=== PATIENT | female | born 1975 | race Caucasian/White ===

== ENCOUNTER 2020-09-13 10:31 | Inpatient (IN) | payer MEDICAID, OTHER ==
--- NOTE | 2020-09-13 11:19 | ED ---
Psych HPI - General Chief Complaint: Psychiatric Symptoms Stated Complaint: Mental health Time Seen by Provider: 09/13/20 10:45 Source: patient, family, RN notes reviewed Mode of arrival: ambulatory - History of Present Illness Initial Comments: This is a 45-year-old female with a history depression and anxiety disorder who states she's been feeling suicidal but she has no specific plan she has thought of driving into a tree with her automobile. Denies any alcohol or street drugs. He does state that she has been on Klonopin in the past for about 2 years 0.5 mg 3 times a day she was trying to get off of that she was on Cymbalta for about 2 and half weeks she does relate that she's had decreased oral intake now shakes more anxiety. She is here for evaluation. She is afraid she may hurt herself. She is tearful during the exam MD Complaint: suicidal ideation, feels depressed - Related Data Home Medications Medication Instructions Recorded Confirmed DULoxetine HCL [Cymbalta] 30 mg PO HS 09/13/20 09/13/20 Ibuprofen [Motrin Ib] 600 mg PO Q8H PRN 09/13/20 09/13/20 Magnesium 400 mg PO DAILY 09/13/20 09/13/20 Melatonin 15 mg PO HS 09/13/20 09/13/20 Omeprazole 20 mg PO DAILY PRN 09/13/20 09/13/20 Valerian Root 100 mg PO TID PRN 09/13/20 09/13/20 clonazePAM [KlonoPIN] 0.5 mg PO DAILY PRN 09/13/20 09/13/20 Allergies Allergy/AdvReac Type Severity Reaction Status Date / Time codeine Allergy Rapid Verified 09/13/20 11:33 Heart Rate Review of Systems ROS Statement: Those systems with pertinent positive or pertinent negative responses have been documented in the HPI. ROS Other: All systems not noted in ROS Statement are negative. Past Medical History Past Medical History: Asthma, Fibromyalgia History of Any Multi-Drug Resistant Organisms: None Reported Past Surgical History: Cholecystectomy, Hysterectomy, Tubal Ligation Past Psychological History: Anxiety, Bipolar, Depression Smoking Status: Never smoker Past Alcohol Use History: None Reported Past Drug Use History: None Reported General Exam - General Exam Comments Initial Comments: this is a well-developed well-nourished awake alert oriented 3 female Limitations: no limitations General appearance: alert, anxious Head exam: Present: atraumatic, normocephalic, normal inspection Eye exam: Present: normal appearance, PERRL, EOMI. Absent: scleral icterus, conjunctival injection, periorbital swelling ENT exam: Present: normal exam, mucous membranes moist Neck exam: Present: normal inspection. Absent: tenderness, meningismus, lymphadenopathy Respiratory exam: Present: normal lung sounds bilaterally. Absent: respiratory distress, wheezes, rales, rhonchi, stridor Cardiovascular Exam: Present: normal rhythm, tachycardia, normal heart sounds. Absent: systolic murmur, diastolic murmur, rubs, gallop, clicks GI/Abdominal exam: Present: soft, normal bowel sounds. Absent: distended, tenderness, guarding, rebound, rigid Extremities exam: Present: normal inspection, full ROM, normal capillary refill. Absent: tenderness, pedal edema, joint swelling, calf tenderness Back exam: Present: normal inspection Neurological exam: Present: alert, oriented X3, CN II-XII intact Psychiatric exam: Present: depressed, anxious, suicidal ideation Skin exam: Present: warm, dry, intact, normal color. Absent: rash Course Vital Signs 09/13/20 10:50 Temperature 97.9 F Pulse Rate 118 H Respiratory 18 Rate Blood Pressure 154/83 O2 Sat by Pulse 97 Oximetry Medical Decision Making - Medical Decision Making the patient was evaluated by the EPS service and will be admitted for inpatient treatment of depression and suicidal ideation - Lab Data Lab Results 09/13/20 09/13/20 Range/Units 12:04 12:57 Urine Opiates Screen Not Detected (NotDetected) Ur Oxycodone Screen Not Detected (NotDetected) Urine Methadone Screen Not Detected (NotDetected) Ur Propoxyphene Screen Not Detected (NotDetected) Ur Barbiturates Screen Not Detected (NotDetected) U Tricyclic Antidepress Not Detected (NotDetected) Ur Phencyclidine Scrn Not Detected (NotDetected) Ur Amphetamines Screen Not Detected (NotDetected) U Methamphetamines Scrn Not Detected (NotDetected) U Benzodiazepines Scrn Detected H (NotDetected) Urine Cocaine Screen Not Detected (NotDetected) U Marijuana (THC) Screen Not Detected (NotDetected) Coronavirus (PCR) Not Detected (Not Detectd) Disposition Clinical Impression: Depression, Suicidal ideation Disposition: TRANSFER TO PSYCH HOSP/UNIT Condition: Fair Referrals: Fadi Gomes DO [Primary Care Provider] - 1-2 days
[2020-09-13 12:39] LABS: Amphetamine Screen,Urine Not Detected (NotDetected); Barbiturate Screen,Urine Not Detected (NotDetected); Benzodiazepines Screen,Urine Detected (NotDetected); Cocaine Screen,Urine Not Detected (NotDetected); Methadone Screen, Urine Not Detected (NotDetected); Opiate Screen,Urine Not Detected (NotDetected); Oxycodone Screen, Urine Not Detected (NotDetected); Phencyclidine Screen,Urine Not Detected (NotDetected); Tricyclic Antidepressant,Urine Not Detected (NotDetected); Urn Cannabinoid Scrn Not Detected (NotDetected)
[2020-09-13] MEDS ORDERED: ACETAMINOPHEN TAB 325 MG TAB PO PRN (14:25)
[2020-09-13] MEDS ORDERED: MAGNESIUM HYDROXIDE 2,400 MG/10 ML CUP PO PRN (14:25)
[2020-09-13] MEDS ORDERED: IBUPROFEN 200 MG TAB PO PRN (14:28)
[2020-09-13] MEDS ORDERED: LORazepam 2 MG/ML INJ IM PRN (14:28)
[2020-09-13] MEDS ORDERED: HALOPERIDOL LACTATE 5 MG/ML 1 ML VIAL IM PRN (14:29)
[2020-09-13] MEDS: LORazepam 1 MG TAB PO PRN ×2 (14:59→23:02)
[2020-09-13 17:04] LABS: Appearance,Urine Clear (Clear); Bilirubin,Urine Negative (Negative); Blood,Urine Negative (Negative); Color,Urine Yellow; Glucose,Urine (UA) Negative (Negative); Ketones,Urine 1+ (Negative); Leukocyte Esterase,Urine Negative (Negative); Nitrite,Urine Negative (Negative); PH, Urine 6.5 (5.0-8.0); Protein,Urine Negative (Negative); Specific Gravity,Urine 1.011 (1.001-1.035); Urobilinogen,Urine <2.0 mg/dL (<2.0)
[2020-09-13] MEDS ORDERED: DULoxetine HCL 30 MG CAPSULE.DR PO SCH (21:00)
[2020-09-13] MEDS ORDERED: MELATONIN 5 MG TABLET PO SCH (21:00)
[2020-09-14] MEDS: haloperidoL 5 MG TAB PO PRN (05:50)
[2020-09-14] MEDS: LORazepam 1 MG TAB PO PRN ×3 (05:51→21:25)
[2020-09-14 08:01] LABS: Basophils % (A) 0 %; Eosinophils # (A) 0.1 k/uL (0-0.7); Eosinophils % (A) 1 %; HCT 45.2 % (34.0-46.0); Lymphocytes # (A) 2.1 k/uL (1.0-4.8); Lymphocytes % (A) 19 %; MCH 30.2 pg (25.0-35.0); MCHC 33.2 g/dL (31.0-37.0); MCV 90.9 fL (80.0-100.0); Mean Platelet Volume 6.7; Monocytes # (A) 0.9 k/uL (0-1.0); Monocytes % (A) 8 %; Neutrophils % (A) 71 %; Platelet Count 407 k/uL (150-450); RBC 4.97 m/uL (3.80-5.40); RDW 12.5 % (11.5-15.5); WBC 11.3 k/uL (3.8-10.6)
[2020-09-14 08:09] LABS: ALT 35 U/L (4-34); AST 26 U/L (14-36); African American GFR (CKD) >90 (>60 ml/min/1.73 sqM); Albumin 4.5 g/dL (3.5-5.0); Alkaline Phosphatase 63 U/L (38-126); Blood Urea Nitrogen 11 mg/dL (7-17); Carbon Dioxide 30 mmol/L (22-30); Chloride 101 mmol/L (98-107); Cholesterol 232 mg/dL (<200); Glucose 126 mg/dL (74-99); Non-African American GFR(CKD) >90 (>60 ml/min/1.73 sqM); Total Bilirubin 0.6 mg/dL (0.2-1.3); Total Protein 7.6 g/dL (6.3-8.2); Triglycerides 199 mg/dL (<150)
[2020-09-14 08:17] LABS: Anion Gap 6 mmol/L; Calcium 10.1 mg/dL (8.4-10.2); HDL Cholesterol 44 mg/dL (40-60); LDL Cholesterol,Calculated 148 mg/dL (0-99); Potassium 4.1 mmol/L (3.5-5.1); Sodium 137 mmol/L (137-145)
[2020-09-14] MEDS: MAG HYDROX/AL HYDROX/SIMETH 30 ML CUP PO PRN (08:20)
[2020-09-14] MEDS ORDERED: NICOTINE 14MG/24HR PATCH TRANSDERM SCH (09:00)
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
[2020-09-14] MEDS: VENLAFAXINE HCL ER 37.5 MG CAP PO SCH (10:56)
[2020-09-14 15:29] LABS: Hemoglobin A1C 5.8 % (4.0-6.0)
--- NOTE | 2020-09-14 19:12 | P.CONS ---
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 She has a long- standing history of depression and anxiety. Also been having history of panic attacks. Symptoms have been slowly building up to crescendo. She started taking more and more 04 Klonopin. Started having fear of people anyone going on and getting grossly. Should call Dr. Nuno and decided to bring her in here. She is also having significant depression and suicidal ideations. Patient's appetite had gone down. Anxiety was leading to diarrhea. No sleeping well. Denies any fever or chills or respiratory symptoms. Patient also to take time off from work. Losing interest in things. 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 Has 2 children are keratome 18 and 12 years of age. Denies use of any smoking alcohol or recreational drugs Family history: Reviewed, noncontributory to presentation Physical examination: VITAL SIGNS: 97.7, 102, 16, 149, 86, 97% on room air GENERAL: BMI 34.2, sitting up, slightly anxious. EYES: Pupils equal. Conjunctiva normal. HEENT: External appearance of nose and ears normal, oral cavity grossly normal. NECK: JVD not raised; masses not palpable. HEART: First and second heart sounds are normal; no edema. LUNGS: Respiratory rate normal; clear to auscultation. ABDOMEN: Soft, nontender, liver spleen not palpable, no masses palpable. PSYCH: Alert and oriented x3; mood and affect normal. NEUROLOGICAL: Cranial nerves grossly intact; no facial asymmetry, power and sensation grossly intact. LYMPHATICS: No lymph nodes palpable in the axilla and neck INVESTIGATIONS, reviewed in the clinical context: White count 11.3 hemoglobin 15 platelets 407 potassium 4.1 creatinine 0.5 for LDL 148 TSH 2.6 UA ketones 1+ Urine drug screen positive for benzodiazepine Coronavirus [PCR]-not detected Assessment and plan: -Obesity BMI 34.2, discussed with the patient to follow-up with her PCP for weight loss measures -Hyperlipidemia, start the patient Lipitor 20 mg daily at bedtime -Chronic insomnia from multiple medical problems and psychiatry issues, hopefully with a new medications she will do better -Acute diarrhea related to anxiety, functional improving-has not had diarrhea today -Major depressive disorder severe recurrent without psychosis -Panic disorder -Possible benzodiazepine withdrawal symptoms Care was discussed with the patient. Questions answered. She should follow-up with her family doctor/Nurse practitioner upon discharge Thank you Dr. Craig Past Medical History Past Medical History: Asthma, Fibromyalgia History of Any Multi-Drug Resistant Organisms: None Reported Past Surgical History: Cholecystectomy, Hysterectomy, Tubal Ligation Past Psychological History: Anxiety, Bipolar, Depression Smoking Status: Former smoker Past Alcohol Use History: None Reported Past Drug Use History: None Reported Medications and Allergies Home Medications Medication Instructions Recorded Confirmed Type DULoxetine HCL [Cymbalta] 30 mg PO HS 09/13/20 09/13/20 History Ibuprofen [Motrin Ib] 600 mg PO Q8H PRN 09/13/20 09/13/20 History Magnesium 400 mg PO DAILY 09/13/20 09/13/20 History Melatonin 15 mg PO HS 09/13/20 09/13/20 History Omeprazole 20 mg PO DAILY PRN 09/13/20 09/13/20 History Valerian Root 100 mg PO TID PRN 09/13/20 09/13/20 History clonazePAM [KlonoPIN] 0.5 mg PO DAILY PRN 09/13/20 09/13/20 History Allergies Allergy/AdvReac Type Severity Reaction Status Date / Time codeine Allergy Rapid Verified 09/13/20 15:33 Heart Rate Physical Exam Vitals: Vital Signs Temp Pulse Resp BP 09/14/20 06:03 102 H 16 149/86 09/14/20 05:45 97.7 F 140 H 18 162/103 09/13/20 15:16 98.2 F 108 H 16 150/104 Intake and Output 09/13/20 09/14/20 09/14/20 22:59 06:59 14:59 Other: Weight 92.646 kg Results CBC & Chem 7: 09/14/20 07:35 09/14/20 07:35 Labs: Abnormal Lab Results - Last 24 Hours (Table) 09/13/20 09/13/20 09/14/20 Range/Units 12:04 12:04 07:35 WBC 11.3 H (3.8-10.6) k/uL Neutrophils # 8.0 H (1.3-7.7) k/uL Glucose (74-99) mg/dL ALT (4-34) U/L Triglycerides (<150) mg/dL Cholesterol (<200) mg/dL LDL Cholesterol, Calc (0-99) mg/dL Urine Ketones 1+ H (Negative) U Benzodiazepines Scrn Detected H (NotDetected) 09/14/20 Range/Units 07:35 WBC (3.8-10.6) k/uL Neutrophils # (1.3-7.7) k/uL Glucose 126 H (74-99) mg/dL ALT 35 H (4-34) U/L Triglycerides 199 H (<150) mg/dL Cholesterol 232 H (<200) mg/dL LDL Cholesterol, Calc 148 H (0-99) mg/dL Urine Ketones (Negative) U Benzodiazepines Scrn (NotDetected)
[2020-09-14] MEDS ORDERED: traZODone HCL 50 MG TAB PO SCH (21:00)
[2020-09-14] MEDS: ATORVASTATIN 20 MG TAB PO SCH (22:38)
[2020-09-15] MEDS: LORazepam 1 MG TAB PO PRN (06:52)
[2020-09-15] MEDS: MAG HYDROX/AL HYDROX/SIMETH 30 ML CUP PO PRN ×3 (07:29→16:29)
[2020-09-15] MEDS: VENLAFAXINE HCL ER 37.5 MG CAP PO SCH (09:21)
[2020-09-15] MEDS ORDERED: VENLAFAXINE HCL ER 37.5 MG CAP PO STA (09:45)
[2020-09-15] MEDS ORDERED: traZODone HCL 50 MG TAB PO PRN (09:46)
--- NOTE | 2020-09-15 09:55 | P.PN ---
Progress Note - Text Progress Note Date: 09/15/20 Interval History: Patient was seen resting in bed and was directable and agreeable to speak with information writer in the office. The patient reports that she continues to experience elevated anxiety. She does express palpitations, racing thoughts, and "feeling like I'm going to jump out of my skin." She reports that uncontrolled anxiety has caused her to think about hurting herself. She is not endorsing any auditory or visual hallucinations at this time. She is denying any paranoia or delusions. She has been adherent with her medications but feels that the trazodone causes her to experience more palpitations. The patient does endorse significant symptoms of PTSD including nightmares and reexperiencing phenomenon. She also reports hypervigilance. She is open to starting prazosin. The patient is requesting benzodiazepine medication stating that she would like to try to taper off the benzodiazepine in the outpatient setting, but review of the patient's maps reveals that she has an active prescription of Klonopin. We discussed at length alternatives for anxiety such as Vistaril which she is agreeable to taking. Mental Status Exam: General Appearance: Patient appears to be stated age is alert, directable, and cooperative. Patient is wearing glasses and has her hair in a ponytail. Behavior: Patient is calmly seated without any agitated behavior. Psychomotor activity slightly elevated. Speech: Patient's speech is fluent and nonpressured. Mood/Affect: Mood is anxious, affect is congruent and nervous. Suicidality/Homicidality: Patient is not reporting any suicidal or homicidal ideation, intention, and/or plan. Perceptions: Patient is not reporting any auditory or visual hallucinations. Though content/process: There is no evidence of any delusional thought content and thought process is linear and goal-directed. Memory and concentration: AOX3, grossly intact for the purposes of this session Judgment and insight: Improving mildly Assessment Major depressive disorder, recurrent, severe Panic disorder Benzodiazepine use disorder Posttraumatic stress disorder Plan: -Patient continues to meet criteria for inpatient psychiatric admission for symptom stabilization and safety. Patient has signed adult voluntary form and medication consent and was placed in patient's chart. -Medications: Increase Effexor XR to 75 mg by mouth daily for depression/anxiety/PTSD Discontinue trazodone as per patient preference Start prazosin 2 mg by mouth at bedtime for PTSD related nightmares Start Vistaril 25 mg when necessary for anxiety -When necessary Ativan and Haldol for agitation/aggression. -SW on board for discharge planning. Encouraged the patient to participate in milieu.
[2020-09-15] MEDS: PANTOPRAZOLE 40 MG TABLET PO SCH (11:17)
[2020-09-15] MEDS: hydrOXYzine pamoate 25 MG CAP PO PRN ×3 (11:18→23:36)
[2020-09-15] MEDS: ATORVASTATIN 20 MG TAB PO SCH (21:37)
[2020-09-15] MEDS: PRAZOSIN 1 MG CAP PO SCH (21:37)
[2020-09-16] MEDS: LORazepam 1 MG TAB PO PRN ×3 (00:40→22:23)
[2020-09-16] MEDS: PANTOPRAZOLE 40 MG TABLET PO SCH (06:25)
[2020-09-16] MEDS: hydrOXYzine pamoate 25 MG CAP PO PRN ×3 (08:17→20:18)
[2020-09-16] MEDS ORDERED: VENLAFAXINE HCL ER 75 MG CAP PO SCH (09:00)
--- NOTE | 2020-09-16 09:18 | P.PN ---
Progress Note - Text Progress Note Date: 09/16/20 Interval History: Patient was seen in the hallways and was agreeable and directable to speak with science writer in the office. The patient states that she has been practicing her coping skills and was able to refrain from using Ativan for more than 24 hours but required one earlier this morning due to palpitations and elevated anxiety. She does state that maintain her composure and not feel suicidal or homicidal. She is denying any suicidal or homicidal ideation, intention, and/or plan. She denies any auditory or visual hallucinations. She is not reporting any paranoia or delusions. She has been adherent with her medications but reports no significant benefit at this time. She does express concern that she would continue to feel withdrawal from benzodiazepines upon discharge due to the fact that she is likely to be discharged without any. was performed and revealed that the patient still has an active prescription of Klonopin. The patient reports that she used all the Klonopin from that prescription already. The patient does express that she had difficulty sleeping last night. She reports she only received about 2 hours of sleep. Mental Status Exam: General Appearance: Patient appears to be stated age is alert, directable, and cooperative. Patient is wearing glasses and has her hair in a ponytail. Behavior: Patient is calmly seated without any agitated behavior. Psychomotor activity is elevated. Speech: Patient's speech is fluent and nonpressured. Mood/Affect: Mood is anxious, affect is congruent and nervous. Suicidality/Homicidality: Patient is not reporting any suicidal or homicidal ideation, intention, and/or plan. Perceptions: Patient is not reporting any auditory or visual hallucinations. Though content/process: There is no evidence of any delusional thought content and thought process is linear and goal-directed. Fixation on medications. Memory and concentration: AOX3, grossly intact for the purposes of this session Judgment and insight: Improving mildly Assessment Major depressive disorder, recurrent, severe Panic disorder Benzodiazepine use disorder Posttraumatic stress disorder Plan: -Patient continues to meet criteria for inpatient psychiatric admission for symptom stabilization and safety. Patient has signed adult voluntary form and medication consent and was placed in patient's chart. -Medications: Increase Effexor XR to 150 mg mg by mouth daily for depression/anxiety/PTSD Continue prazosin 2 mg by mouth at bedtime for PTSD related nightmares Increase Vistaril to 50 mg when necessary for anxiety Start Seroquel 50 mg by mouth at bedtime for insomnia -When necessary Ativan and Haldol for agitation/aggression. -SW on board for discharge planning. Encouraged the patient to participate in milieu.
[2020-09-16] MEDS ORDERED: VENLAFAXINE HCL ER 75 MG CAP PO STA (09:39)
[2020-09-16] MEDS: VENLAFAXINE HCL ER 75 MG CAP PO SCH (09:41)
[2020-09-16] MEDS: PRAZOSIN 1 MG CAP PO SCH (20:18)
[2020-09-16] MEDS: ATORVASTATIN 20 MG TAB PO SCH (20:57)
[2020-09-16] MEDS ORDERED: QUEtiapine 50 MG TAB PO SCH (21:00)
[2020-09-16] MEDS: haloperidoL 5 MG TAB PO PRN (21:49)
[2020-09-17] MEDS: haloperidoL 5 MG TAB PO PRN (05:56)
[2020-09-17] MEDS: LORazepam 1 MG TAB PO PRN ×2 (05:56→13:58)
[2020-09-17 07:19] VITALS: BP 113/71; PULSE 130; RESP 16; TEMP 98
[2020-09-17] MEDS: PANTOPRAZOLE 40 MG TABLET PO SCH (08:45)
[2020-09-17] MEDS: VENLAFAXINE HCL ER 75 MG CAP PO SCH (08:45)
--- NOTE | 2020-09-17 10:16 | P.DS ---
Providers Date of admission: 09/13/20 14:22 Expected date of discharge: 09/17/20 Attending physician: Reji Craig MD Consults: 09/13/20 14:25 Consult Physician Routine Consulting Provider: Palomo Simon Consult Reason/Comments: medical management Do you want consulting provider notified?: Yes Primary care physician: Reji Craig MD - Discharge Diagnosis(es) (1) Major depressive disorder Current Visit: Yes Status: Acute Priority: High (2) Panic disorder Current Visit: Yes Status: Acute Priority: High (3) Posttraumatic stress disorder Current Visit: Yes Status: Acute Priority: High Hospital Course: Admission HPI: Initial psychiatric evaluation was completed by Dr. Tate on 09/17/2020 who wrote: "The patient is a 45-year-old female admitted to the psychiatric unit involuntarily with complaints of suicidal ideation as well as increasing depression and anxiety. She complained a long history of depression and anxiety beginning in early adulthood. She initially began the interview with the statement "I've been described antidepressants all my life." She was somewhat difficult to interview because she was markedly anxious. She presented with anxiety and complained that she feels more anxious on the psychiatric unit. She has a history of having been treated intermittently with several antidepressants. Over the last 2 years her primary has been prescribing her clonazepam 0.5 mg daily when necessary for her anxiety. She described increasing anxiety and "panic attacks" over the last month. She denied a history of panic attack or panic attack disorder. She described discreet episodes of anxiety that built up to crescendo to where she felt she was going to or lose control. She described classic somatic symptoms including shortness of breath, lightheadedness, heart palpitations, tremulousness, s weatiness and fear of dying. She began taking higher doses of clonazepam to quell the anxiety. About one week prior to admission she consumed her 1 month supply of clonazepam. When she ran out of clonazepam she described marked increase in anxiety accompanied by depersonalization and derealization. During this time she felt as though she was going to . At the behest of a close friend she presented to the emergency room with complaints of suicidal ideation. She told EPS nurse that she was unsafe to return home. The EPS nurse notes indicate agoraphobia but I was unable to identify pandey avoidance symptoms. Her depressive episodes are characterized by marked withdrawal where she secluded herself in the house and refused to get out of bed. She described anhedonia, anergy, marked decrease in appetite, feelings of hopelessness, fatigue and increased need for sleep. She denied that she has experienced periods of elevated mood or sustained irritability suggestive of david or hypomania. She denied experiencing such psychotic symptoms as hallucinations, paranoia or thought disturbances. She denied obsessions or compulsions. She denied suicide attempts or gestures. He She does not drink or use drugs to get high, help her sleep or change her mood. Interestingly, she stopped smoking marijuana "about a year ago" because the marijuana was increasing anxiety and precipitating panic attacks." Hospital course: Upon admission to the unit patient was initially acting with significant anxiety with elevated psychomotor activity and restlessness. Patient was however directable and agreeable to commence treatment. Diagnosis of major depressive disorder, panic disorder, and benzodiazepine physiological dependence made. The patient was initiated on Effexor and Cymbalta was discontinued. Trazodone was also added for sleep. Over the course of the hospitalization, the patient had gradual improvement in mood but still continued to express elevated anxiety. The patient was primarily concerned with her use of benzodiazepine medications. She states that she was using Klonopin more than what was prescribed to her and she expressed concern that she would be going to benzodiazepine withdrawal. The patient reports that she tries to limit her use of Ativan while on the unit. Review of the patient's MAPS revealed that the patient still had an active pr escription of Klonopin. She was initially asking for Ativan upon discharge but was informed that this would not be appropriate due to her active script of klonopin. The patient was eventually transitioned into a regimen of Effexor, prazosin, Vistaril, and Seroquel. Requip was also added at bedtime to aid with restless leg syndrome. On the day of discharge, the patient is not reporting any suicidal or homicidal ideation, intention, and/or plan. She is not reporting any auditory or visualizations. She is denying any paranoia or delusions. She has been adherent with her medications and is not reporting any significant side effects. She reports that the Haldol that she received as needed for agitation was more beneficial for sleep and Seroquel was and would like to be sent home with Haldol instead. This provider discussed with her the risks, benefits, and alternatives of the medications and other treatment modalities. The patient was counseled at length adherent with her medications, and appropriate follow-up. She was also counseled on taking her medications as prescribed. The patient was counseled on abstaining from all substances including alcohol and marijuana. Prior to discharge, family meeting will be arranged by social studies department chair to answer any questions and ensure safety. Mental status exam: General Appearance: Patient appears to be stated age is alert, pleasant, and cooperative. Patient is in no acute distress and has fair hygiene and grooming. Patient is wearing glasses and has her hair in a ponytail. Behavior: Patient is calmly seated without any agitated behavior. Psychomotor activity is normal. Speech: Patient's speech is fluent and nonpressured. Mood/Affect: Patient reports their mood is "pretty anxious", affect is congruent and nervous. Suicidality/Homicidality: Patient denies having any suicidal or homicidal ideation intent or plan. Perceptions: Patient denies any auditory or visual hallucinations. Though content/process: There is no evidence of any delusional thought content and thought process is linear and goal-directed. The patient is future oriented. Memory and concentration: AOX3, grossly intact for the purposes of this session. Can spell "WORLD" backwards correctly. Judgment and insight: Improved with guarded prognosis Impression: Major depressive disorder, recurrent, severe Panic disorder Benzodiazepine use disorder Posttraumatic stress disorder Plan: -Continue with discharge today as patient has improved and stabilized psychiatrically and is not currently an imminent threat to herself and/or others. Patient will remain at chronically elevated risk for harm to self and/or others due to her physiological dependence on benzodiazepine medication. -Continue medications: Effexor XR 150 mg by mouth every morning Haldol 5 mg by mouth at bedtime when necessary for anxiety/agitation Minipress 2 mg by mouth at bedtime Requip 0.25 mg daily at bedtime Vistaril when necessary for anxiety -Patient was counseled on the need for medication compliance and appropriate follow-up at mental health and also primary care for medical issues. Patient verbalized understanding and agreed. -Social work to arrange for and conduct family meeting to ensure safety upon discharge and answer any questions/concerns. Social work also to arrange for patients follow up appointments with [facility] for psychiatric care along with follow up with primary care provider. -Patient counseled on abstaining from recreational drugs and marijuana and alcohol. Was informed/educated on the adverse effects on their physical and mental health. Patient verbally agreed and understood. Patient was offered substance abuse treatment however declined at this time. -Patient was instructed to return to the hospital or seek immediate medical care if their psychiatric or medical symptoms do worsen or reoccur. -Psychoeducation and supportive therapy provided to patient. Risks and benefits of pharmacological treatment versus the risks and benefits of nontreatment weight and discussed. Informed consent discussion held. Common side effects of psychotropics discussed such as, but not limited to headache, GI disturbance, sexual dysfunction, movement disorders, sedation, and orthostatic hypotension. Life threatening and blackbox warnings of prescribed medications also discussed. Potential risks of operating a vehicle or heavy machinery discussed with patient at length. Advised on importance of compliance and a reliable and responsible manner. Patient advised to review FDA consumer labeling of all medications prior to taking. Patient verbalized understanding of potential risks, and agrees with current treatment plan. Patient advised to medically contact physician/emergency personnel if any acute changes in condition occur. Vital Signs Temp 98 F 09/17/20 07:18 Pulse 130 H 09/17/20 07:18 Resp 16 09/17/20 07:18 BP 113/71 09/17/20 07:18 Pulse Ox 97 09/16/20 00:42 Laboratory Results WBC 11.3 k/uL (3.8-10.6) H 09/14/20 07:35 RBC 4.97 m/uL (3.80-5.40) 09/14/20 07:35 Hgb 15.0 gm/dL (11.4-16.0) 09/14/20 07:35 Hct 45.2 % (34.0-46.0) 09/14/20 07:35 MCV 90.9 fL (80.0-100.0) 09/14/20 07:35 MCH 30.2 pg (25.0-35.0) 09/14/20 07:35 MCHC 33.2 g/dL (31.0-37.0) 09/14/20 07:35 RDW 12.5 % (11.5-15.5) 09/14/20 07:35 Plt Count 407 k/uL (150-450) 09/14/20 07:35 MPV 6.7 09/14/20 07:35 Neutrophils % 71 % 09/14/20 07:35 Lymphocytes % 19 % 09/14/20 07:35 Monocytes % 8 % 09/14/20 07:35 Eosinophils % 1 % 09/14/20 07:35 Basophils % 0 % 09/14/20 07:35 Neutrophils # 8.0 k/uL (1.3-7.7) H 09/14/20 07:35 Lymphocytes # 2.1 k/uL (1.0-4.8) 09/14/20 07:35 Monocytes # 0.9 k/uL (0-1.0) 09/14/20 07:35 Eosinophils # 0.1 k/uL (0-0.7) 09/14/20 07:35 Basophils # 0.0 k/uL (0-0.2) 09/14/20 07:35 Sodium 137 mmol/L (137-145) 09/14/20 07:35 Potassium 4.1 mmol/L (3.5-5.1) 09/14/20 07:35 Chloride 101 mmol/L (98-107) 09/14/20 07:35 Carbon Dioxide 30 mmol/L (22-30) 09/14/20 07:35 Anion Gap 6 mmol/L 09/14/20 07:35 BUN 11 mg/dL (7-17) 09/14/20 07:35 Creatinine 0.54 mg/dL (0.52-1.04) 09/14/20 07:35 Est GFR (CKD-EPI)AfAm >90 (>60 ml/min/1.73 sqM) 09/14/20 07:35 Est GFR (CKD-EPI)NonAf >90 (>60 ml/min/1.73 sqM) 09/14/20 07:35 Glucose 126 mg/dL (74-99) H 09/14/20 07:[address] Glu mg/dL 120 09/14/20 07:35 Hemoglobin A1c 5.8 % (4.0-6.0) 09/14/20 07:35 Calcium 10.1 mg/dL (8.4-10.2) 09/14/20 07:35 Total Bilirubin 0.6 mg/dL (0.2-1.3) 09/14/20 07:35 AST 26 U/L (14-36) 09/14/20 07:35 ALT 35 U/L (4-34) H 09/14/20 07:35 Alkaline Phosphatase 63 U/L (38-126) 09/14/20 07:35 Total Protein 7.6 g/dL (6.3-8.2) 09/14/20 07:35 Albumin 4.5 g/dL (3.5-5.0) 09/14/20 07:35 Triglycerides 199 mg/dL (<150) H 09/14/20 07:35 Cholesterol 232 mg/dL (<200) H 09/14/20 07:35 LDL Cholesterol, Calc 148 mg/dL (0-99) H 09/14/20 07:35 HDL Cholesterol 44 mg/dL (40-60) 09/14/20 07:35 TSH 2.600 mIU/L (0.465-4.680) 09/14/20 07:35 Urine Color Yellow 09/13/20 12:04 Urine Appearance Clear (Clear) 09/13/20 12:04 Urine pH 6.5 (5.0-8.0) 09/13/20 12:04 Ur Specific Otis 1.011 (1.001-1.035) 09/13/20 12:04 Urine Protein Negative (Negative) 09/13/20 12:04 Urine Glucose (UA) Negative (Negative) 09/13/20 12:04 Urine Ketones 1+ (Negative) H 09/13/20 12:04 Urine Blood Negative (Negative) 09/13/20 12:04 Urine Nitrite Negative (Negative) 09/13/20 12:04 Urine Bilirubin Negative (Negative) 09/13/20 12:04 Urine Urobilinogen <2.0 mg/dL (<2.0) 09/13/20 12:04 Ur Leukocyte Esterase Negative (Negative) 09/13/20 12:04 Urine Opiates Screen Not Detected (NotDetected) 09/13/20 12:04 Ur Oxycodone Screen Not Detected (NotDetected) 09/13/20 12:04 Urine Methadone Screen Not Detected (NotDetected) 09/13/20 12:04 Ur Propoxyphene Screen Not Detected (NotDetected) 09/13/20 12:04 Ur Barbiturates Screen Not Detected (NotDetected) 09/13/20 12:04 U Tricyclic Antidepress Not Detected (NotDetected) 09/13/20 12:04 Ur Phencyclidine Scrn Not Detected (NotDetected) 09/13/20 12:04 Ur Amphetamines Screen Not Detected (NotDetected) 09/13/20 12:04 U Methamphetamines Scrn Not Detected (NotDetected) 09/13/20 12:04 U Benzodiazepines Scrn Detected (NotDetected) H 09/13/20 12:04 Urine Cocaine Screen Not Detected (NotDetected) 09/13/20 12:04 U Marijuana (THC) Screen Not Detected (NotDetected) 09/13/20 12:04 Coronavirus (PCR) Not Detected (Not Detectd) 09/13/20 12:57 Allergies Allergy/AdvReac Type Severity Reaction Status Date / Time codeine Allergy Rapid Verified 09/13/20 15:33 Heart Rate Patient Condition at Discharge: Stable Plan - Discharge Summary Discharge Rx Participant: Yes New Discharge Prescriptions: New Atorvastatin Calcium [Lipitor] 20 mg PO HS #30 tab Venlafaxine HCl ER [Effexor XR] 150 mg PO DAILY 30 Days cap.er.24h haloperidoL [Haldol] 5 mg PO HS PRN 30 Days tab PRN Reason: Agitation Or Acute Anxiety Atorvastatin [Lipitor] 20 mg PO HS 30 Days tab Prazosin [Minipress] 2 mg PO HS 30 Days cap Pantoprazole [Protonix] 40 mg PO AC-BRKFST 30 Days tablet. rOPINIRole HCL [Requip] 0.25 mg PO HS 30 Days tab hydrOXYzine pamoate [Vistaril] 50 mg PO Q6H PRN 30 Days cap PRN Reason: Anxiety Continue Valerian Root 100 mg PO TID PRN PRN Reason: Anxiety Melatonin 15 mg PO HS Magnesium 400 mg PO DAILY Discontinued Ibuprofen [Motrin Ib] 600 mg PO Q8H PRN PRN Reason: Pain Or Fever > 100.5 clonazePAM [KlonoPIN] 0.5 mg PO DAILY PRN PRN Reason: Anxiety Omeprazole 20 mg PO DAILY PRN PRN Reason: Heartburn DULoxetine HCL [Cymbalta] 30 mg PO HS Discharge Medication List Magnesium 400 mg PO DAILY 09/13/20 [History] Melatonin 15 mg PO HS 09/13/20 [History] Valerian Root 100 mg PO TID PRN 09/13/20 [History] Atorvastatin Calcium [Lipitor] 20 mg PO HS #30 tab 09/14/20 [Rx] Atorvastatin [Lipitor] 20 mg PO HS 30 Days tab 09/17/20 [Rx] Pantoprazole [Protonix] 40 mg PO AC-BRKFST 30 Days tablet.dr 09/17/20 [Rx] Prazosin [Minipress] 2 mg PO HS 30 Days cap 09/17/20 [Rx] Venlafaxine HCl ER [Effexor XR] 150 mg PO DAILY 30 Days cap.er.24h 09/17/20 [Rx] haloperidoL [Haldol] 5 mg PO HS PRN 30 Days tab 09/17/20 [Rx] hydrOXYzine pamoate [Vistaril] 50 mg PO Q6H PRN 30 Days cap 09/17/20 [Rx] rOPINIRole HCL [Requip] 0.25 mg PO HS 30 Days tab 09/17/20 [Rx] Follow up Appointment(s)/Referral(s): [facility] [Outside] - 1 Week Fadi Gomes DO [STAFF PHYSICIAN] - 1-2 days Activity/Diet/Wound Care/Special Instructions: Activity and diet as tolerated. Avoid the use of street drugs and alcohol. Take all medications as prescribed. When you are in need of refills on your medications please contact your medical provider and/or outpatient psychiatrist to have this done. Please go to scheduled outpatient appointment for aftercare treatment. If symptoms return or become worse, call the crisis line at and/or go to the nearest emergency room for evaluation. Discharge Disposition: HOME SELF-CARE
== END 2020-09-17 16:00 | disposition home or self-care (01) | DRG 885 ==
LOC: EC 10:31 → 3MHU 14:22
PROVIDERS: ADMIT Psychiatry & Neurology Psychiatry; ATTEND Psychiatry & Neurology Psychiatry
DX: F33.2 Major depressive disorder, recurrent severe without psychotic features (principal); R45.851 Suicidal ideations; F13.239 Sedative, hypnotic or anxiolytic dependence with withdrawal, unspecified; J44.9 Chronic obstructive pulmonary disease, unspecified; F43.10 Post-traumatic stress disorder, unspecified; F41.0 Panic disorder [episodic paroxysmal anxiety]; Z20.822 Contact with and (suspected) exposure to COVID-19; F51.04 Psychophysiologic insomnia; E78.5 Hyperlipidemia, unspecified; R19.7 Diarrhea, unspecified; G25.81 Restless legs syndrome; M79.7 Fibromyalgia; E66.9 Obesity, unspecified; Z68.34 Body mass index [BMI] 34.0-34.9, adult; Z90.710 Acquired absence of both cervix and uterus; Z79.899 Other long term (current) drug therapy; Z90.49 Acquired absence of other specified parts of digestive tract; Z98.51 Tubal ligation status; Z87.19 Personal history of other diseases of the digestive system; Z87.42 Personal history of other diseases of the female genital tract; Z87.891 Personal history of nicotine dependence; Z88.5 Allergy status to narcotic agent; F48.1 Depersonalization-derealization syndrome
CPT/HCPCS: 80053; 80061; 80306; 81003; 82075; 83036; 84443; 85025; 87635; 99285

== ENCOUNTER → 2023-03-07 | Outpatient (CLI) | payer OTHER ==
--- NOTE | 2023-03-07 16:22 | US ---
EXAMINATION TYPE: US venous doppler duplex LE RT DATE OF EXAM: 03/07/2023 2:15 PM COMPARISON: NONE CLINICAL INDICATION: Female, 47 years old with history of M79.604 PAIN IN RIGHT LEG; right calf pain without injury SIDE PERFORMED: right TECHNIQUE: The lower extremity deep venous system is examined utilizing real time linear array sonog sheri with graded compression, doppler sonography and color-flow sonography. VESSELS IMAGED: Common Femoral Vein Deep Femoral Vein Greater Saphenous Vein * Femoral Vein Popliteal Vein Small Saphenous Vein * Proximal Calf Veins (* superficial vessels) Right Leg: neg for RLE dvt Results called to the office at the time of the exam. IMPRESSION: Grayscale, color doppler, spectral doppler imaging performed of the deep veins of the lo wer extremities. There is normal flow, compressibility, vascular waveforms.
== END | disposition home or self-care (01) ==
LOC: RADUSWWP 13:46
PROVIDERS: ATTEND Family Medicine
DX: M79.604 Pain in right leg (principal)

== ENCOUNTER → 2023-06-21 | Outpatient (CLI) | payer OTHER ==
--- NOTE | 2023-06-21 19:07 | US ---
EXAMINATION TYPE: US thyroid st tissue head/neck DATE OF EXAM: 06/21/2023 COMPARISON: NONE CLINICAL INDICATION: Female, 47 years old with history of R22.1 MASS AND LUMP, NECK; Pt has a lump on right posterior neck. Pt states she is unsure how long it has been there but started getting painful 1 month ago. Hx of fibromyalgia but states the pain is different. Technique: Grayscale imaging of the posterior left neck. FINDINGS: No discrete abnormality appreciated in today's study in area of lump IMPRESSION: No finding to correlate patient's palpable abnormality. Lipomatous tissue seen in the area of concern .
== END | disposition home or self-care (01) ==
LOC: RADUSWWP 16:02
PROVIDERS: ATTEND Family Medicine
DX: R22.1 Localized swelling, mass and lump, neck (principal); M79.7 Fibromyalgia
CPT/HCPCS: 76536